=== PATIENT | female | born 1975 | race Caucasian/White ===

== ENCOUNTER 2017-09-20 19:55 | Observation (INO) | payer MEDICAID ==
[~2017-09-20] VITALS: Ht 160 cm; Wt 66.9 kg
[2017-09-20 19:58] VITALS: BP 115/56; PULSE 95; RESP 18; TEMP 98.3; O2SAT 100
[2017-09-20] MEDS ORDERED: SODIUM CHLORIDE 0.9% FLUSH 10 ML FLUSH IV FLUSH PRN ×2 (20:30→21:45)
[2017-09-20] MEDS ORDERED: ALUMINUM/MAGNESIUM/SIMETH 30 ML CUP PO ONE (20:30)
[2017-09-20] MEDS ORDERED: LIDOCAINE VISCOUS 2% SOLN 15 ML UDC PO ONE (20:30)
[2017-09-20] MEDS ORDERED: IOHEXOL 350 MG/ML 10 ML VIAL (for RAD DIAG) IVCONTRAST ONE (20:35)
--- NOTE | 2017-09-20 20:49 | PD ---
HPI Chief Complaint: GI Complaint Time Seen by Provider: 20:19 Travel History International Travel<30 days: No Contact w/Intl Traveler<30days: No Traveled to known affect area: No History of Present Illness HPI 42-year-old female with history of anemia, clotting disorder not on any blood thinners, Olayinka-en-Y gastric bypass in 2007, hiatal hernia, GERD, here for evaluation of her clotting disorder as well as sore throat. The patient tells me that 2 days ago she cut her left index finger and it did not bleed. She was told that if this ever occurs that she needed to be evaluated. She also tells me that for the last week to 2 weeks she has been having a sore throat. She states that she has pica because of her anemia and usually chews eyes, however this has been making her throat pain worse. She believes that this may be a result of her GERD, but she is not sure. Pain is 9 out of 10, worse with swallowing. She is able to swallow and tolerate her secretions. She denies fevers or chills. She believes that because of her throat pain that is worse with swallowing, that she may be malnourished. No chest pain or dyspnea. No paresthesias or motor deficits. PFSH Past Medical History Blood Disorders: Yes (blood clotting disorder ) Diminished Hearing: No GERD: Yes Hiatal Hernia: Yes Medical other: Yes (IBS-C) Neurologic: Yes (Blood clot in brain) ?: Unknown LMP: 09/10/17 Social History Alcohol Use: No Tobacco Use: No Substance Use: No Allergies-Medications (Allergen,Severity, Reaction): Coded Allergies: Penicillins (Verified Allergy, Unknown, unknown, 09/20/17) Review of Systems Except as stated in HPI: all other systems reviewed are Neg Physical Exam Narrative GENERAL: Well-developed, well-nourished, comfortable, no apparent distress. SKIN: Focused skin assessment warm/dry. HEAD: Atraumatic. Normocephalic. EYES: Pupils equal and round. No scleral icterus. No injection or drainage. ENT: No nasal bleeding or discharge. Mucous membranes pink and moist. No intraoral lesions. Mild pharyngeal erythema. No pharyngeal exudates or edema. Uvula is midline. Normal phonation. NECK: Trachea midline. No JVD. CARDIOVASCULAR: Regular rate and rhythm. RESPIRATORY: No accessory muscle use. Clear to auscultation. Breath sounds equal bilaterally. GASTROINTESTINAL: Abdomen soft, non-tender, nondistended. MUSCULOSKELETAL: No obvious deformities. No clubbing. No cyanosis. No edema. NEUROLOGICAL: Awake and alert. No obvious cranial nerve deficits. Motor grossly within normal limits. Normal speech. PSYCHIATRIC: Appropriate mood and affect; insight and judgment normal. Data Data Last Documented VS Vital Signs Date Time Temp Pulse Resp B/P (MAP) Pulse Ox O2 Delivery O2 Flow Rate FiO2 09/20/17 21:10 84 16 110/62 (78) 98 Nasal Cannula 09/20/17 19:58 98.3 Orders Orders Complete Blood Count With Diff (09/20/17 20:28) Comprehensive Metabolic Panel (09/20/17 20:28) Prothrombin Time / Inr (Pt) (09/20/17 20:28) Act Partial Throm Time (Ptt) (09/20/17 20:28) Iv Access Insert/Monitor (09/20/17 20:28) Ecg Monitoring (09/20/17 20:28) Oximetry (09/20/17 20:28) Sodium Chloride 0.9% Flush (Ns Flush) (09/20/17 20:30) Al-Mag Hy-Si 40-40-4 Mg/Ml Liq (Mag-Al P (09/20/17 20:30) Lidocaine 2% Viscous (Xylocaine 2% Visco (09/20/17 20:30) Group A Rapid Strep Screen (09/20/17 20:28) Type And Screen (09/20/17 21:16) Red Blood Cells (Rbc) (09/20/17 21:16) Blood Product Administration (09/20/17 21:16) Sodium Chlor 0.9% 250 Ml Inj (Ns 250 Ml (09/20/17 21:30) Strep Culture (Group A) (09/20/17 20:33) Place In Observation (09/20/17 ) Vital Signs (Adult) Q4H (09/20/17 21:37) Activity Oob With Assistance (09/20/17 21:37) Bedside Glucose SELINA.CSUGAR (09/20/17 21:37) Diet Heart Healthy (09/21/17 Breakfast) Sodium Chloride 0.9% Flush (Ns Flush) (09/20/17 21:45) Sodium Chloride 0.9% Flush (Ns Flush) (09/21/17 09:00) Acetaminophen (Tylenol) (09/20/17 21:45) Ondansetron Inj (Zofran Inj) (09/20/17 21:45) Basic Metabolic Panel (Bmp) (09/21/17 06:00) Comprehensive Metabolic Panel (09/21/17 06:00) Scd Bilateral/Knee High SELINA.BID (09/20/17 21:37) Naloxone Inj (Narcan Inj) (09/20/17 21:45) Docusate Sodium-Senna (Siri-Colace) (09/21/17 09:00) Magnesium Hydroxide Liq (Milk Of Magnesi (09/20/17 21:45) Sennosides (Senokot) (09/20/17 21:45) Bisacodyl Supp (Dulcolax Supp) (09/20/17 21:45) Lactulose Liq (Lactulose Liq) (09/20/17 21:45) Consult Gastroenterology (09/20/17 ) Pantoprazole Inj (Protonix Inj) (09/20/17 21:45) Occult Blood (Hemoccult) Stool (09/20/17 21:41) Labs Laboratory Tests Test 09/20/17 20:25 White Blood Count 7.7 TH/MM3 Red Blood Count 3.71 MIL/MM3 Hemoglobin 6.0 GM/DL Hematocrit 21.4 % Mean Corpuscular Volume 57.6 FL Mean Corpuscular Hemoglobin 16.3 PG Mean Corpuscular Hemoglobin Concent 28.3 % Red Cell Distribution Width 19.4 % Platelet Count 462 TH/MM3 Mean Platelet Volume 7.6 FL CBC Comment AUTO DIFF Differential Total Cells Counted 100 Neutrophils % (Manual) 53 % Lymphocytes % 41 % Monocytes % 3 % Eosinophils % 3 % Neutrophils # (Manual) 4.1 TH/MM3 Differential Comment FINAL DIFF MANUAL Platelet Estimate HIGH Platelet Morphology Comment NORMAL Target Cells 1+ Ovalocytes 2+ Keratocytes 1+ Prothrombin Time 10.7 SEC Prothromb Time International Ratio 1.0 RATIO Activated Partial Thromboplast Time 23.8 SEC Blood Urea Nitrogen 14 MG/DL Creatinine 0.52 MG/DL Random Glucose 103 MG/DL Total Protein 6.9 GM/DL Albumin 3.6 GM/DL Calcium Level 8.9 MG/DL Alkaline Phosphatase 47 U/L Aspartate Amino Transf (AST/SGOT) 9 U/L Alanine Aminotransferase (ALT/SGPT) 14 U/L Total Bilirubin 0.3 MG/DL Sodium Level 141 MEQ/L Potassium Level 3.6 MEQ/L Chloride Level 109 MEQ/L Carbon Dioxide Level 24.7 MEQ/L Anion Gap 7 MEQ/L Estimat Glomerular Filtration Rate 128 ML/MIN MDM Medical Decision Making Medical Screen Exam Complete: Yes Emergency Medical Condition: Yes Differential Diagnosis Anemia, pharyngitis, water brash/GERD, clotting disorder Narrative Course Vital signs reviewed and are within normal limits. CBC is remarkable for hemoglobin 6, hematocrit 21.4, MCV 57.6, MCH 16.3. CMP is unremarkable. Patient was made aware of all findings. She denies melena or hematochezia. She is having some generalized weakness. She was consented for blood transfusion will be written for 2 units of PRBCs and admitted for further treatment and evaluation. Case discussed with hospitalist Dr. Abdul who will admit the patient to her service. Diagnosis Primary Impression: Anemia Qualified Codes: D64.9 - Anemia, unspecified Admitting Information Admitting Physician Requests: Observation Chapito Wright MD Sep 20, 2017 20:49
[2017-09-20 20:55] LABS: CHLORIDE 109 MEQ/L (98-107); POTASSIUM 3.6 MEQ/L (3.5-5.1); SODIUM (NA) 141 MEQ/L (136-145)
[2017-09-20 20:58] LABS: ANION GAP 7 MEQ/L (5-15); BICARBONATE 24.7 MEQ/L (21.0-32.0); BLOOD UREA NITROGEN 14 MG/DL (7-18)
[2017-09-20 21:00] LABS: HEMATOCRIT 21.4 % (35.0-46.0); HEMO FLAGS AUTO DIFF; MEAN CELL VOLUME 57.6 FL (80.0-100.0); MEAN CORPUSCULAR HEMOGLOBIN 16.3 PG (27.0-34.0); MEAN CORPUSCULAR HGB CONC 28.3 % (32.0-36.0); PLATELET COUNT 462 TH/MM3 (150-450); RED BLOOD COUNT 3.71 MIL/MM3 (4.00-5.30); RED CELL DISTRIBUTION WIDTH 19.4 % (11.6-17.2); WHITE BLOOD COUNT 7.7 TH/MM3 (4.0-11.0)
[2017-09-20 21:01] LABS: ALT (GPT) 14 U/L (10-53); AST (GOT) 9 U/L (15-37)
[2017-09-20 21:02] LABS: GLOMERULAR FILTRATION RATE 128 ML/MIN (>89)
[2017-09-20 21:03] LABS: TOTAL BILIRUBIN ADULT 0.3 MG/DL (0.2-1.0)
[2017-09-20 21:04] LABS: ALKALINE PHOSPHATASE 47 U/L (45-117)
[2017-09-20 21:09] VITALS: O2SAT 98
[2017-09-20 21:10] VITALS: BP 110/62; PULSE 84; RESP 16; O2SAT 98
[2017-09-20 21:13] LABS: APTT (PATIENT) 23.8 SEC (24.3-30.1); PROTHROMBIN TIME - PATIENT 10.7 SEC (9.8-11.6)
[2017-09-20] MEDS ORDERED: SODIUM CHLOR 0.9% 250 ML INJ 250 ML IV ONE (21:30)
[2017-09-20 21:39] LABS: EOSINOPHILS 3 % (0-4); NEUTROPHIL # MANUAL DIFF 4.1 TH/MM3 (1.8-7.7); OVALOCYTES 2+ (NORMAL); POLYS (SEG NEUTROPHILS) 53 % (16-70); TARGET CELLS 1+ (NORMAL); WBC DIFF SAMPLE 100
[2017-09-20 21:42] LABS: KERATOCYTES 1+ (NORMAL); PLATELET ESTIMATE SMEAR HIGH (NORMAL); PLATELET MORPHOLOGY NORMAL (NORMAL); SCAN/DIFF FINAL DIFF MANUAL
[2017-09-20] MEDS ORDERED: ACETAMINOPHEN 325 MG TAB PO PRN (21:45)
[2017-09-20] MEDS ORDERED: MAGNESIUM HYDROXIDE SUSP 30 ML CUP PO PRN (21:45)
[2017-09-20] MEDS ORDERED: LACTULOSE SYRUP 20 GM/30 ML CUP PO PRN (21:45)
[2017-09-20] MEDS ORDERED: BISACODYL 10 MG SUPP RECTAL PRN (21:45)
[2017-09-20] MEDS ORDERED: NALOXONE HCL 0.4 MG/ML AMP IV PUSH PRN (21:45)
[2017-09-20] MEDS ORDERED: ONDANSETRON HCL 4 MG/2 ML VIAL IVP PRN (21:45)
[2017-09-20] MEDS ORDERED: SENNOSIDES 8.6 MG TAB PO PRN (21:45)
[2017-09-20] MEDS: PANTOPRAZOLE SODIUM 40 MG VIAL IV PUSH SCH (21:56)
[2017-09-20 22:10] VITALS: BP 102/58; PULSE 85; RESP 18; TEMP 97.2; O2SAT 100
[2017-09-20 23:25] VITALS: BP 105/55; PULSE 76; RESP 20; TEMP 96.9; O2SAT 100
[2017-09-21] VITALS (12 sets, daily range): BP systolic 89–105; BP diastolic 51–84; PULSE 66–84; RESP 18–20; TEMP 96.8–97.8; O2SAT 98–99
--- NOTE | 2017-09-21 08:29 | HHI.HP ---
HPI [facility] Primary Care Physician Non-Staff Admission Diagnosis Anemia Diagnoses: (1) Anemia Diagnosis: Principal Chief Complaint: Blood clotting issues Travel History International Travel<30 Days: No Contact w/Intl Traveler <30 Da: No Traveled to Known Affected Are: No History of Present Illness Written by Ab Murillo, acting as scribe for Dr. Jc on 09/21/17 at 08 :29. 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 Patient states that she is always been told when she was diagnosed with her bleeding disorder that if she would have any bleeding abnormalities such as delayed bleeding she should go to the hospital for evaluation. Patient states that 3 days ago she cut herself and it did not bleed as much as it should. Because of that reason she came to the hospital yesterday for evaluation. Patient does have coagulopathy in which she monitors symptoms. She has had significant sore throat, sore mouth with PICA because patient had workup done in emergency department and found to have hemoglobin of 6.0 with decreased MCV indicative of iron deficiency. Patient indicates that she has not been taking her B12 or iron for at least a few months. ER physician recommended patient be observed in the hospital. Patient status post 2 units packed red blood cell transfusion. Patient had strep studies performed which did not indicate any acute etiology of her mouth/throat pain. Patient denies any chest pain, shortness of breath, dyspnea, melena, hematochezia. Patient has had chronic abdominal pain with constipation. Patient indicates that she had heavier menses With more clots with her last cycle. 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 Denies any heart disease, stroke , seizures Social History Patient eyes any tobacco, alcohol or illicit drugs Physical Exam Vital Signs Vital Signs Date Time Temp Pulse Resp B/P (MAP) Pulse Ox O2 Delivery O2 Flow Rate FiO2 09/21/17 06:50 97.8 75 18 102/84 98 09/21/17 06:42 97.8 75 20 102/56 (71) 98 09/21/17 04:41 97.0 70 18 89/54 99 09/21/17 04:14 97.0 81 20 95/58 99 09/21/17 03:58 97.8 69 20 96/51 (66) 98 09/21/17 01:20 97.1 84 20 96/56 99 09/21/17 00:39 96.8 80 18 93/56 99 09/20/17 23:25 96.9 76 20 105/55 (72) 100 09/20/17 23:15 09/20/17 22:10 97.2 85 18 102/58 (73) 100 Room Air 09/20/17 21:10 84 16 110/62 (78) 98 Nasal Cannula 09/20/17 21:09 98 09/20/17 19:58 98.3 95 18 115/56 (75) 100 Physical Exam GENERAL: Well-developed, well-nourished, in no acute distress. alert and orientated HEENT: Head is normocephalic without any lesions or masses noted. Facial features are symmetric. Eyes: Pupils equal round reactive to light. Extraocular muscles are intact. Conjunctivae were clear. Oropharyngeal: Pharynx without any erythema edema. Tongue is midline without deviation. Buccal mucosa is moist without any masses or lesions NECK: Supple without any masses. Trachea midline no deviation. No JVD, no bruits are appreciated CARDIAC: Regular rhythm, regular rate. S1/S2 are heard. No murmurs gallops or rubs. LUNGS: Clear to auscultation bilaterally. No wheeze, rhonchi or rales. No use of accessory muscles on inspiration or expiration. ABDOMEN: Soft, mild epigastric tenderness on palpation. Nondistended. Bowel sounds heard in all 4 quadrants. No organomegaly or masses. Negative rebound, negative guarding EXTREMITIES: No edema, pulses are equal bilaterally. No cyanosis or clubbing NEUROLOGY: Mood and affect appear appropriate. Cranial nerves II through XII grossly intact. Muscle strength 5/5 in upper and lower extremities bilaterally. Deep tendon reflexes are 2+ in upper and lower extremities bilaterally. Laboratory Laboratory Tests Test 09/20/17 20:25 White Blood Count 7.7 Red Blood Count 3.71 Hemoglobin 6.0 Hematocrit 21.4 Mean Corpuscular Volume 57.6 Mean Corpuscular Hemoglobin 16.3 Mean Corpuscular Hemoglobin Concent 28.3 Red Cell Distribution Width 19.4 Platelet Count 462 Mean Platelet Volume 7.6 CBC Comment AUTO DIFF Differential Total Cells Counted 100 Neutrophils % (Manual) 53 Lymphocytes % 41 Monocytes % 3 Eosinophils % 3 Neutrophils # (Manual) 4.1 Differential Comment FINAL DIFF MANUAL Platelet Estimate HIGH Platelet Morphology Comment NORMAL Target Cells 1+ Ovalocytes 2+ Keratocytes 1+ Blood Smear Pathologist Review Prothrombin Time 10.7 Prothromb Time International Ratio 1.0 Activated Partial Thromboplast Time 23.8 Blood Urea Nitrogen 14 Creatinine 0.52 Random Glucose 103 Total Protein 6.9 Albumin 3.6 Calcium Level 8.9 Alkaline Phosphatase 47 Aspartate Amino Transf (AST/SGOT) 9 Alanine Aminotransferase (ALT/SGPT) 14 Total Bilirubin 0.3 Sodium Level 141 Potassium Level 3.6 Chloride Level 109 Carbon Dioxide Level 24.7 Anion Gap 7 Estimat Glomerular Filtration Rate 128 Date/Time Source Procedure Growth Status 09/20/17 20:33 Throat Group A Streptococcus Screen Pending Received Result Diagram: 09/20/17202409/20/172024 Caprini VTE Risk Assessment Caprini VTE Risk Assessment: Mod/High Risk (score >= 2) Caprini Risk Assessment Model Point Value = 1 Point Value = 2 Point Value = 3 Point Value = 5 Age 41-60 Minor surgery BMI > 25 kg/m2 Swollen legs Varicose veins or History of unexplained or recurrent spontaneous Oral contraceptives or hormone replacement Sepsis (< 1 month) Serious lung disease, including pneumonia (< 1 month) Abnormal pulmonary function Acute myocardial infarction Congestive heart failure (< 1 month) History of inflammatory bowel disease Medical patient at bed rest Age 61-74 Arthroscopic surgery Major open surgery (> 45 min) Laparoscopic surgery (> 45 min) Malignancy Confined to bed (> 72 hours) Immobilizing plaster cast Central venous access Age >= 75 History of VTE Family history of VTE Factor V Leiden Prothrombin [id number] Lupus anticoagulant Anticardiolipin antibodies Elevated serum homocysteine Heparin-induced thrombocytopenia Other congenital or acquired thrombophilia Stroke (< 1 month) Elective arthroplasty Hip, pelvis, or leg fracture Acute spinal cord injury (< 1 month) Prophylaxis Regimen Total Risk Factor Score Risk Level Prophylaxis Regimen 0-1 Low Early ambulation 2 Moderate Order ONE of the following: *Sequential Compression Device (SCD) *Heparin 5000 units SQ BID 3-4 Higher Order ONE of the following medications: *Heparin 5000 units SQ TID *Enoxaparin/Lovenox 40 mg SQ daily (WT < 150 kg, CrCl > 30 mL/min) *Enoxaparin/Lovenox 30 mg SQ daily (WT < 150 kg, CrCl > 10-29 mL/min) *Enoxaparin/Lovenox 30 mg SQ BID (WT < 150 kg, CrCl > 30 mL/min) AND/OR *Sequential Compression Device (SCD) 5 or more Highest Order ONE of the following medications: *Heparin 5000 units SQ TID (Preferred with Epidurals) *Enoxaparin/Lovenox 40 mg SQ daily (WT < 150 kg, CrCl > 30 mL/min) *Enoxaparin/Lovenox 30 mg SQ daily (WT < 150 kg, CrCl > 10-29 mL/min) *Enoxaparin/Lovenox 30 mg SQ BID (WT < 150 kg, CrCl > 30 mL/min) AND *Sequential Compression Device (SCD) Assessment and Plan Problem List: (1) Microcytic anemia ICD Code: D50.9 - Iron deficiency anemia, unspecified Assessment and Plan Microcytic Anemia Patient has history of Olayinka-en-Y surgery with iron deficiency, B12 deficiency Patient is not taking any medications for the last few months Status post transfusion 2 units packed red blood cells Obtain iron studies for further evaluation, awaiting stool for occult blood Will likely need to start B12, iron supplementation Pharyngitis, dysphagia Strep Studies are negative Could be secondary to B12 deficiency Bedside swallow evaluation 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 I, Dr. Sammy Jc personally performed the history, physical exam, and medical decision making; and confirmed the accuracy of the information in the transcribed note. Authenticated by Dr. Sammy Jc on 09/21/17 at 08:29. Code Status Full code Discussed Condition With Patient Problem Qualifiers (1) Anemia: Qualified Codes: D64.9 - Anemia, unspecified Ab Murillo Sep 21, 2017 08:29 Sammy Jc MD Sep 21, 2017 08:29
[2017-09-21] MEDS: DOCUSATE SODIUM 50 MG/SENNA 8.6 MG TAB PO SCH ×2 (08:40→21:00)
[2017-09-21] MEDS: SODIUM CHLORIDE 0.9% FLUSH 10 ML FLUSH IV FLUSH SCH ×2 (08:41→21:44)
[2017-09-21 10:53] LABS: AUTOMATED NEUTROPHIL # 4.1 TH/MM3 (1.8-7.7); BASOPHIL % 0.7 % (0.0-2.0); EOSINOPHIL # 0.1 TH/MM3 (0-0.4); HEMATOCRIT 28.5 % (35.0-46.0); LYMPH % 25.4 % (9.0-44.0); LYMPHOCYTE # 1.6 TH/MM3 (1.0-4.8); MEAN CELL VOLUME 63.9 FL (80.0-100.0); MEAN CORPUSCULAR HEMOGLOBIN 18.6 PG (27.0-34.0); MONO % 10.4 % (0.0-8.0); NEUT % 62.5 % (16.0-70.0); PLATELET COUNT 391 TH/MM3 (150-450); RED BLOOD COUNT 4.47 MIL/MM3 (4.00-5.30); WHITE BLOOD COUNT 6.5 TH/MM3 (4.0-11.0)
[2017-09-21 10:56] LABS: HEMO FLAGS AUTO DIFF; MEAN CORPUSCULAR HGB CONC 29.1 % (32.0-36.0)
[2017-09-21 11:01] LABS: CHLORIDE 109 MEQ/L (98-107); POTASSIUM 3.7 MEQ/L (3.5-5.1); SODIUM (NA) 142 MEQ/L (136-145)
[2017-09-21 11:04] LABS: ANION GAP 6 MEQ/L (5-15); BICARBONATE 27.5 MEQ/L (21.0-32.0)
[2017-09-21 11:05] LABS: BLOOD UREA NITROGEN 13 MG/DL (7-18)
[2017-09-21 11:08] LABS: ALT (GPT) 15 U/L (10-53); AST (GOT) 9 U/L (15-37); GLOMERULAR FILTRATION RATE 144 ML/MIN (>89)
[2017-09-21 11:09] LABS: TOTAL BILIRUBIN ADULT 1.4 MG/DL (0.2-1.0)
[2017-09-21 11:10] LABS: ALKALINE PHOSPHATASE 40 U/L (45-117)
[2017-09-21 11:17] LABS: KERATOCYTES 2+ (NORMAL); OVALOCYTES 2+ (NORMAL); SCAN/DIFF AUTO DIFF CONFIRMED; TARGET CELLS 1+ (NORMAL)
[2017-09-21 14:09] LABS: LDH SERUM 225 U/L (84-246)
[2017-09-21 14:10] LABS: REVIEW FLAG FINAL
[2017-09-21 14:34] LABS: FERRITIN 1 NG/ML (8-252); TRANSFERRIN IRON PROFILE 327 MG/DL (200-360)
[2017-09-21] MEDS ORDERED: DIATRIZOATE MEGLUM/DIATRIZOATE SOD 9 ML CUP PO ONE (16:00)
--- NOTE | 2017-09-21 21:02 | MB ---
cc: JAMES GONZALEZ M.D., ERIC DATE OF CONSULTATION: 09/21/2017 REASON FOR CONSULTATION: Anemia, dysphagia, odynophagia. DATE OF : 1975 REFERRING PHYSICIAN: Dr. Jc HISTORY OF PRESENT ILLNESS: Ms. Chaudhry is a 42-year-old lady with multiple medical problems, noncompliant to medication, came to the emergency room with complaints of feeling weak and difficulty eating. She is mostly complaining of sore throat and sore mouth, going on for many months ,getting worse recently. She also reports some underlying coagulopathy, currently not taking any medications. The patient is status post gastric bypass. She is not following with bariatric surgery or taking her bariatric supplements. She stated she does have chronic abdominal pain, constipation, and anemia. She is not sure what her baseline hemoglobin is. She had an endoscopy and colonoscopy more than ten years ago. According to her everything was normal. She was evaluated at bedside by nursing staff with a swallow evaluation and she failed that. She choked on a pill. Currently awaiting speech therapy to further evaluate her. She denies any melena, hematemesis, hematochezia or menometrorrhagia. She denies any epistaxis. PAST MEDICAL HISTORY: 1. Iron deficiency, unclear what her hemoglobin at baseline is. 2. History of CVA from trauma. 3. Endometriosis. 4. IBS 5. Seizure disorder. 6. Reflux. PAST SURGICAL HISTORY: 1. Olayinka-en-Y 2. Breast reduction. 3. Colectomy 4. Cholecystectomy OUTPATIENT MEDICATIONS: None. ALLERGIES PENICILLIN FAMILY HISTORY No family history of colon cancer or any other GI pathology. REVIEW OF SYSTEMS: She denies any fever or chills. She does have some weight loss. ENT: No alteration in baseline hearing or visual acuity. Pulmonary: Denies any chest pain, shortness of breath. Gastrointestinal: As above. Genitourinary: Denies dysuria, hematuria. Hematologic: Does have a history of anemia and clotting disorder. Skin: No alteration in baseline skin lesion. Neurological: No history of TIA or CVA kind of symptoms in the recent past. CLINICAL EXAM She is sitting comfortably in bed, in no acute distress. Pale. HEENT: PERRLA. Neck: No JVD. No lymphadenopathy Chest: Clear to auscultation. Cardiovascular: S1-S2 no murmur. Abdomen: Soft, nontender. Bowel sounds are present. ROLL WEIGHER: Awake, alert, oriented x3. No focal signs identified. VITAL SIGNS: Her temperature is 98.3, pulse 95, respiratory rate 18, blood pressure 115/56, saturation 100. LABORATORY DATA: Suggestive of hemoglobin of 6, MCV is 57.6, RDW 19.4, platelets were 482. Her white count is 7.7. PT/INR normal. Her total bilirubin is 1.4, was 0.3 upon admission. IMAGING STUDIES: No imaging done so far. IMPRESSION Ms. Chaudhry is a 42-year-old lady with multiple medical problems admitted with symptomatic anemia. No indication of active bleed at this time, microcytic anemia, multifactorial, most likely absorption problems and noncompliance to her bariatric supplements. The odynophagia and dysphagia, sore mouth possibly secondary to iron deficiency anemia, possible vitamin B12 deficiency. RECOMMENDATIONS Await speech therapy evaluation. If she passes okay to start her on p.o. diet, as recommended by speech therapy, also CT of the abdomen and pelvis will be scheduled once she is able to tolerate p.o. She may benefit from an upper endoscopy with possible dilatation on colonoscopy. If she remains hospitalized, can be done on Tuesday. If not, can be done as an outpatient. This was discussed with the patient in detail. Iron supplementation, may consider IV iron infusion. Await vitamin B12, folate results. I would like to thank Dr. Jc for referring to our office for consultation. Thank you again. Will continue to follow the patient along with you. James Gonzalez MD BSB/GUERLINE /2:18 PM /8:46 PM APRIL
--- NOTE | 2017-09-21 21:10 | RADRPT ---
EXAM DATE/TIME: 09/21/2017 20:22 [facility] COMPARISON: No previous studies available for comparison. INDICATIONS : Chronic abdominal pain and constipation. Anemia. IV CONTRAST: 100 cc Omnipaque 350 (iohexol) IV ORAL CONTRAST: Prescribed oral contrast ingested. RADIATION DOSE: 9.45 CTDIvol (mGy) MEDICAL HISTORY : Gastroesophageal reflux disease. Irritable bowel syndrome. Cerebrovascular disease.Hiatal hernia. Se izures. Hypertension. SURGICAL HISTORY : Cholecystectomy. Gastric bypass. ENCOUNTER: Initial ACUITY: 4 - 6 days PAIN SCALE: 7/10 LOCATION: Diffuse abdomen. TECHNIQUE: Volumetric scanning of the abdomen and pelvis was performed. Using automated exposure control and ad justment of the mA and/or kV according to patient size, radiation dose was kept as low as reasonably achievable to obtain optimal diagnostic quality images. DICOM format image data is available electro nically for review and comparison. FINDINGS: LOWER LUNGS: The visualized lower lungs are clear. LIVER: No focal lesions in the liver. No intrahepatic ductal dilatation. Hemoclips in the ray from prior cholecystectomy. Common bile duct is mildly prominent measuring up to 9 mm, possible reservoir effe ct. SPLEEN: Normal size without lesion. PANCREAS: Within normal limits. KIDNEYS: Normal in size and shape. There is no mass, stone or hydronephrosis. ADRENAL GLANDS: Within normal limits. VASCULAR: There is no aortic aneurysm. BOWEL/MESENTERY: Oral contrast passes two th[address] the way through the small bowel. No dilated loops of small bowel. P rominent amount is stool and the right colon and transverse colon. Anastomosis suture about the stom ach. ABDOMINAL WALL: Within normal limits. RETROPERITONEUM: There is no lymphadenopathy. BLADDER: No wall thickening or mass. REPRODUCTIVE: Anteverted uterus is top no evidence free fluid. INGUINAL: There is no lymphadenopathy or hernia. MUSCULOSKELETAL: Within normal limits for patient age. CONCLUSION: 1. Constipation. No dilated loops of small bowel. 2. Prominence of the common bile duct without filling defect and with evidence of prior cholecystecto my, probably reservoir effect. Noah Martínez MD on September 21, 2017 at 21:05 Board Certified Radiologist. This report was verified electronically.
[2017-09-21] MEDS: PANTOPRAZOLE SODIUM 40 MG VIAL IV PUSH SCH (21:44)
[2017-09-21] MEDS: PHENOL 1.4% SOLN 180 ML BTL OROPHARYNG PRN (21:46)
[2017-09-22 08:00] VITALS: BP 105/59; PULSE 65; RESP 12; TEMP 97.4; O2SAT 95
[2017-09-22] MEDS: DOCUSATE SODIUM 50 MG/SENNA 8.6 MG TAB PO SCH ×2 (09:00→21:08)
[2017-09-22] MEDS: SODIUM CHLORIDE 0.9% FLUSH 10 ML FLUSH IV FLUSH SCH ×2 (09:21→21:06)
[2017-09-22] MEDS: IRON SUCROSE INJ 200 MG in SODIUM CHLORIDE 0.9% INJ 100 ML IV SCH (10:57)
[2017-09-22] MEDS: PHENOL 1.4% SOLN 180 ML BTL OROPHARYNG PRN ×3 (10:57→21:06)
--- NOTE | 2017-09-22 11:08 | HHI.PR ---
Subjective Remarks Follow up Microcytic anemia 09/22 2017-patient seen and examined, she was transfused 2 units PRBC; Denies any solid or liquid dysphagia. Denies any GI bleed Objective Vitals Vital Signs Date Time Temp Pulse Resp B/P (MAP) Pulse Ox O2 Delivery O2 Flow Rate FiO2 09/22/17 08:00 97.4 65 12 105/59 (74) 95 09/21/17 23:46 97.3 81 18 105/66 (79) 98 09/21/17 20:00 97.6 76 18 104/62 (76) 99 09/21/17 15:50 97.4 79 20 105/57 (73) 98 09/21/17 11:54 97.1 66 20 100/56 (71) 98 I/O 09/21/17 09/21/17 09/21/17 09/22/17 09/22/17 09/22/17 07:00 15:00 23:00 07:00 15:00 23:00 Intake Total 2780 ml 240 ml 580 ml Balance 2780 ml 240 ml 580 ml Intake Oral 480 ml 240 ml 580 ml IV Total 50 ml Packed Cells 1200 ml Blood Product IV Normal Saline Flush 1050 ml # Voids 2 6 3 # Bowel Movements 0 0 Result Diagram: 09/21/17 1045 09/21/17 1035 Imaging Last Impressions Abdomen/Pelvis CT 09/21/17 0000 Signed Impressions: Service Date/Time: Thursday, September 21, 2017 20:22 - CONCLUSION: 1. Constipation. No dilated loops of small bowel. 2. Prominence of the common bile duct without filling defect and with evidence of prior cholecystectomy, probably reservoir effect. Noah Martínez MD Objective Remarks GENERAL: NAD SKIN: Warm and dry. HEAD: Normocephalic. EYES: No scleral icterus. No injection or drainage. NECK: Supple, trachea midline. No JVD or lymphadenopathy. CARDIOVASCULAR: Regular rate and rhythm without murmurs, gallops, or rubs. RESPIRATORY: Breath sounds equal bilaterally. No accessory muscle use. GASTROINTESTINAL: Abdomen soft, non-tender, nondistended. MUSCULOSKELETAL: No cyanosis, or edema. BACK: Nontender without obvious deformity. No CVA tenderness. A/P Problem List: (1) Microcytic anemia ICD Code: D50.9 - Iron deficiency anemia, unspecified Assessment and Plan 42 yrs old female with Microcytic Anemia Patient has history of Olayinka-en-Y surgery with iron deficiency, B12 deficiency Patient is not taking any medications for the last few months Status post transfusion 2 units packed red blood cells Appreciate input from gastroenterology who plan for EGD +/- Colonoscopy in a.m 09/23/17. 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
[2017-09-22 12:00] VITALS: BP 100/55; PULSE 65; RESP 16; TEMP 96.6; O2SAT 98
--- NOTE | 2017-09-22 14:06 | HHI.GIFU ---
Subjective Remarks Resting in bed. Continues to have odynophagia and issues with solids and pills getting caught in upper esophagus. Also having issues with GERD and chronic constipation. (Susan Duffy) Objective Vitals I&O Vital Signs Date Time Temp Pulse Resp B/P (MAP) Pulse Ox O2 Delivery O2 Flow Rate FiO2 09/22/17 12:00 96.6 65 16 100/55 (70) 98 09/22/17 08:00 97.4 65 12 105/59 (74) 95 09/21/17 23:46 97.3 81 18 105/66 (79) 98 09/21/17 20:00 97.6 76 18 104/62 (76) 99 09/21/17 15:50 97.4 79 20 105/57 (73) 98 I/O 09/21/17 09/21/17 09/21/17 09/22/17 09/22/17 09/22/17 07:00 15:00 23:00 07:00 15:00 23:00 Intake Total 2780 ml 240 ml 580 ml Balance 2780 ml 240 ml 580 ml Intake Oral 480 ml 240 ml 580 ml IV Total 50 ml Packed Cells 1200 ml Blood Product IV Normal Saline Flush 1050 ml # Voids 2 6 3 # Bowel Movements 0 0 Laboratory Date/Time Source Procedure Growth Status 09/20/17 20:33 Throat Group A Streptococcus Screen - Preliminary IMMATURE GROWTH - REINCUBATE Resulted Imaging Last Impressions Abdomen/Pelvis CT 09/21/17 0000 Signed Impressions: Service Date/Time: Thursday, September 21, 2017 20:22 - CONCLUSION: 1. Constipation. No dilated loops of small bowel. 2. Prominence of the common bile duct without filling defect and with evidence of prior cholecystectomy, probably reservoir effect. Noah Martínez MD Physical Exam HEENT: Normocephalic; atraumatic; no jaundice. CHEST: CTA CARDIAC: RRR ABDOMEN: Soft, nondistended, nontender; no hepatosplenomegaly; bowel sounds are present in all four quadrants. EXTREMITIES: No clubbing, cyanosis, or edema. SKIN: Normal; no rash; no jaundice. QUALITY ASSURANCE LAB TECHNICIAN: No focal deficits; alert and oriented times three. (Susan Duffy) Assessment and Plan Plan ASSESSMENT: - Anemia. Hx Olayinka-en-Y procedure in 2007. HH 6.0/21.4 on admission. S/P 2 units PRBC. HH 8.3/28.5. PPI - Odynophagia, Dysphagia. PPI - GERD. PPI - Constipation. Daily Miralax after bowel prep - Prominent CBD with mildly elevated LFTs. CT Scan abdomen and pelvis (09/21/17) --> Constipation, no dilated loops of small bowel. Prominence of the CBD 9mm, without filling defect and with evidence of prior cholecystectomy, probable reservoir effect. PLAN: - Plan for EGD +/- Dilatation, Colonoscopy - Obtain consents - NPO after MN - Clear liquids today - Golytely prep - Miralax daily starting tomorrow - Monitor CBC, CMP - Supportive care - Further recommendations to follow based on results of above - Pt seen and examined by Dr. Schilling and myself and this note is written on his behalf (Susan Duffy) Physician Comments Seen and examined with JULIANN, EGD/Dilation/colonoscopy planned for tomorrow. (Bob Schilling MD) Susan Duffy Sep 22, 2017 14:06 Bob Schilling MD Sep 22, 2017 14:21
[2017-09-22 16:00] VITALS: BP 104/55; PULSE 75; RESP 16; TEMP 98.3; O2SAT 98
[2017-09-22] MEDS ORDERED: PEG (High)/E-LYTE SOLN 4000 ML BTL PO ONE (16:00)
[2017-09-22 20:00] VITALS: BP 101/52; PULSE 70; RESP 16; TEMP 97; O2SAT 98
[2017-09-22] MEDS: PANTOPRAZOLE SODIUM 40 MG VIAL IV PUSH SCH (21:06)
[2017-09-23] VITALS (7 sets, daily range): BP systolic 99–118; BP diastolic 45–72; PULSE 67–80; RESP 15–20; TEMP 96.9–98.5; O2SAT 98–100
[2017-09-23 06:53] LABS: AUTOMATED NEUTROPHIL # 5.2 TH/MM3 (1.8-7.7); BASOPHIL % 0.4 % (0.0-2.0); EOSINOPHIL # 0.2 TH/MM3 (0-0.4); HEMATOCRIT 27.1 % (35.0-46.0); LYMPHOCYTE # 2.2 TH/MM3 (1.0-4.8); MEAN CELL VOLUME 64.9 FL (80.0-100.0); MEAN CORPUSCULAR HEMOGLOBIN 18.9 PG (27.0-34.0); MONO % 7.2 % (0.0-8.0); NEUT % 63.4 % (16.0-70.0); PLATELET COUNT 308 TH/MM3 (150-450); RED BLOOD COUNT 4.19 MIL/MM3 (4.00-5.30); WHITE BLOOD COUNT 8.2 TH/MM3 (4.0-11.0)
[2017-09-23 07:00] LABS: HEMO FLAGS AUTO DIFF; MEAN CORPUSCULAR HGB CONC 29.1 % (32.0-36.0); POTASSIUM 3.1 MEQ/L (3.5-5.1)
[2017-09-23 07:04] LABS: BICARBONATE 27.4 MEQ/L (21.0-32.0)
[2017-09-23 07:42] LABS: ACANTHOCYTES 1+ (NORMAL); KERATOCYTES 1+ (NORMAL); OVALOCYTES 2+ (NORMAL); SCAN/DIFF AUTO DIFF CONFIRMED; TARGET CELLS 1+ (NORMAL)
[2017-09-23] MEDS: IRON SUCROSE INJ 200 MG in SODIUM CHLORIDE 0.9% INJ 100 ML IV SCH (09:00)
[2017-09-23] MEDS: DOCUSATE SODIUM 50 MG/SENNA 8.6 MG TAB PO SCH ×2 (09:00→20:51)
[2017-09-23] MEDS: POLYETHYLENE GLYCOL 17 GM PKG PO SCH (09:00)
[2017-09-23] MEDS: SODIUM CHLORIDE 0.9% FLUSH 10 ML FLUSH IV FLUSH SCH ×2 (09:02→20:50)
--- NOTE | 2017-09-23 11:03 | HHI.PR ---
Subjective Remarks Follow up Microcytic anemia 09/22 2017-patient seen and examined, she was transfused 2 units PRBC; Denies any solid or liquid dysphagia. Denies any GI bleed 09/23/17-patient seen and examined, upsets that she had to take the prep for bowel due to continue ongoing issue with constipation. Plan for EGD +/- endoscopy per GI Objective Vitals Vital Signs Date Time Temp Pulse Resp B/P (MAP) Pulse Ox O2 Delivery O2 Flow Rate FiO2 09/23/17 08:00 98.3 79 15 103/54 (70) 98 09/23/17 04:00 98.5 75 16 99/56 (70) 99 09/23/17 00:00 97.9 76 16 118/66 (83) 99 09/22/17 20:00 97.0 70 16 101/52 (68) 98 09/22/17 16:00 98.3 75 16 104/55 (71) 98 09/22/17 12:00 96.6 65 16 100/55 (70) 98 I/O 09/22/17 09/22/17 09/22/17 09/23/17 09/23/17 09/23/17 07:00 15:00 23:00 07:00 15:00 23:00 Intake Total 580 ml 500 ml 10 ml Balance 580 ml 500 ml 10 ml Intake Oral 580 ml 500 ml IV Total 10 ml # Voids 3 2 5 # Bowel Movements 0 1 1 Result Diagram: 09/23/1762409/23/17624 Objective Remarks GENERAL: NAD SKIN: Warm and dry. HEAD: Normocephalic. EYES: No scleral icterus. No injection or drainage. NECK: Supple, trachea midline. No JVD or lymphadenopathy. CARDIOVASCULAR: Regular rate and rhythm without murmurs, gallops, or rubs. RESPIRATORY: Breath sounds equal bilaterally. No accessory muscle use. GASTROINTESTINAL: Abdomen soft, non-tender, nondistended. MUSCULOSKELETAL: No cyanosis, or edema. BACK: Nontender without obvious deformity. No CVA tenderness. A/P Problem List: (1) Microcytic anemia ICD Code: D50.9 - Iron deficiency anemia, unspecified (2) Iron deficiency anemia ICD Code: D50.9 - Iron deficiency anemia, unspecified Assessment and Plan 42 yrs old female with Microcytic Anemia Patient has history of Olayinka-en-Y surgery with iron deficiency, B12 deficiency Patient is not taking any medications for the last few months Status post transfusion 2 units packed red blood cells. H&H remained stable Appreciate input from gastroenterology who plan for EGD +/- Colonoscopy today 09/23/17. 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
--- NOTE | 2017-09-23 14:43 | GIPROC ---
[facility] [address] [place] [address], [id number] EGD PROCEDURE REPORT EXAM DATE: 09/23/2017 PATIENT NAME: Ashtyn Chaudhry MR #: [id number] BIRTHDATE: 1975 ATTENDING: Bob Schilling MD ORDER #: [id number] FELT CUTTER: Renato Kitchen and Laura Varma STATUS: inpatient INDICATIONS: The patient is a 42 yr old female here for an EGD due to anemia and iron deficiency anemia PROCEDURE PERFORMED: EGD w/ biopsy MEDICATIONS: None and Per Anesthesia. TOPICAL ANESTHETIC: CONSENT: The patient understands the risks and benefits of the procedure and understands that these risks include, but are not limited to: sedation, allergic reaction, infection, perforation and/or bleeding. Alternative means of evaluation and treatment include, among others: physical exam, x-rays, and/or surgical intervention. The patient elects to proceed with this endoscopic procedure. medical equipment was checked for proper function. Hand hygiene and appropriate measures for infection prevention was taken. After the risks, benefits and alternatives of the procedure were thoroughly explained, Informed consent was verified, confirmed and timeout was successfully executed by the treatment team. The patient was anesthetized with topical anesthesia and the EC-[id number] (Pedi C) endoscope was introduced through the mouth and advanced to the second portion of the duodenum. Retroflexed views revealed no abnormalities The gastroscope was then slowly withdrawn and removed. ESOPHAGUS: There was LA Class A esophagitis noted. A biopsy was performed using cold forceps. Sample sent for histology. There was a short friable stricture in the upper third of the esophagus. The stricture was traversable with resistance. A biopsy was performed using cold forceps. Sample sent for histology. STOMACH: Gastric surgery, small non bleeding ulcer. DUODENUM: The duodenal mucosa appeared normal in the bulb and second portion of the duodenum. ADVERSE EVENTS: There were no complications. IMPRESSIONS: 1. There was LA Class A esophagitis noted; biopsy was performed 2. There was a short stricture in the upper third of the esophagus 3. Gastric surgery, small non bleeding ulcer 4. Normal duodenal mucosa in the bulb and second portion of the duodenum 5. Retroflexed views revealed no abnormalities RECOMMENDATIONS: 1. Await biopsy results. Biopsy results will not be ready for 7-10 days. If you don't hear from us in two weeks, call our office for biopsy results. 2. Anti-reflux regimen 3. Continue PPI PATIENT CONDITION: stable DISPOSITION: Inpatient REPEAT EXAM: Return 1 year EGD with dilatation Bob Schilling MD eSigned: Bob Schilling MD 09/23/2017 2:43 PM cc: PATIENT NAME: Ashtyn Chaudhry MR#: [id number]
--- NOTE | 2017-09-23 14:44 | GIPROC ---
[facility] [address] [place] [address], [id number] COLONOSCOPY PROCEDURE REPORT EXAM DATE: 09/23/2017 PATIENT NAME: Ashtyn Chaudhry MR #: [id number] BIRTHDATE: 1975 ENDOSCOPIST: Bob Schilling MD ORDER #: [id number] TOBACCO SIZER: Renato Kitchen and Laura Varma STATUS: inpatient INDICATIONS: The patient is a 42 yr old female here for a colonoscopy due to iron deficiency anemia PROCEDURE PERFORMED: Colonoscopy, diagnostic MEDICATIONS: None and Per Anesthesia. PREP QUALITY: The [place] Bowel Prep Score was Right colon 2, Mid colon 2, and Left colon 2. Total = 6. PREP TYPE:GoLytely ESTIMATED BLOOD LOSS: None CONSENT: The patient understands the risks and benefits of the procedure and understands that these risks include, but are not limited to: sedation, allergic reaction, infection, perforation and/or bleeding. Alternative means of evaluation and treatment include, among others: physical exam, x-rays, and/or surgical intervention. The patient elects to proceed with this endoscopic procedure. medical equipment was checked for proper function. Hand hygiene and appropriate measures for infection prevention was taken. After the risks, benefits and alternatives of the procedure were thoroughly explained, Informed consent was verified, confirmed and timeout was successfully executed by the treatment team. A digital exam revealed external hemorrhoids The Pentax EC-[id number] endoscope was introduced through the anus and advanced to the cecum, which was identified by both the appendix and ileocecal valve. The instrument was then slowly withdrawn as the colon was fully examined. COLON FINDINGS: A small patch of colitis was found in the rectum. The mucosa was erythematous. Retroflexed views revealed internal hemorrhoids and Retroflexed views revealed medium internal hemorrhoids The scope was then completely withdrawn from the patient and the procedure terminated. PROCEDURE WITHDRAWAL TIME:6minutes ADVERSE EVENTS: There were no complications. IMPRESSIONS: 1. Small colitis was found in the rectum; The mucosa was erythematous 2. Retroflexed views revealed internal hemorrhoids 3. Retroflexed views revealed medium internal hemorrhoids 4. Revealed external hemorrhoids RECOMMENDATIONS: 1. Benefiber 2 tsp daily 2. Continue surveillance 3. Yearly hemoccult RECALL: Return 3 years Colonoscopy Bob Schilling MD eSigned: Bob Schilling MD 09/23/2017 2:44 PM cc:
--- NOTE | 2017-09-23 18:41 | RADRPT ---
EXAM DATE/TIME: 09/23/2017 15:50 [place] COMPARISON: No previous studies available for comparison. INDICATIONS : Chronic abdominal pain and constipation. Anemia. FLUORO TIME: 0 minutes IMAGE COUNT: 12 CONTRAST: Entero Vu 24% Barium Sulfate (24% w/v, 20% w/w) IMAGING TIME(S): 15 min, 30 min, 45 min, 1 hr, 1.5 hrs, 2.5 hrs MEDICAL HISTORY : Gastroesophageal reflux disease. Ulcers. Microcytic anemia, Hypertension, Endometriosis, Anxiety , Depression, Blood dyscrasias, IBS, TIA, Gallbladder disease, Seizures SURGICAL HISTORY : Gastric bypass. Cholecystectomy. Endoscopy, Colonoscopy, Colectomy, Breast deduction ENCOUNTER: Initial ACUITY: 1 week PAIN SCORE: 1/10 LOCATION: Bilateral abdomen FINDINGS: Preliminary film demonstrates gas throughout nondistended loops of small and large bowel. Evidence o f prior upper abdominal surgery.. Examination of the small bowel demonstrates normal mucosal pattern involving the jejunum and ileum. There is no evidence of mass or obstruction. No intraluminal filling defects are identified. Small bowel transit time is normal at 45 minutes. The terminal ileum has a normal configuration.. CONCLUSION: Unremarkable small bowel examination. Noah Martínez MD on September 23, 2017 at 18:38 Board Certified Radiologist. This report was verified electronically.
[2017-09-23] MEDS: PANTOPRAZOLE SODIUM 40 MG VIAL IV PUSH SCH (20:50)
[2017-09-23] MEDS: PHENOL 1.4% SOLN 180 ML BTL OROPHARYNG PRN (22:03)
[2017-09-24] VITALS: BP 112/67; PULSE 69; RESP 20; TEMP 96.6; O2SAT 99
[2017-09-24 08:53] VITALS: BP 99/53; PULSE 65; RESP 16; TEMP 96.9; O2SAT 98
[2017-09-24] MEDS: DOCUSATE SODIUM 50 MG/SENNA 8.6 MG TAB PO SCH (09:00)
[2017-09-24] MEDS: POLYETHYLENE GLYCOL 17 GM PKG PO SCH (09:00)
[2017-09-24] MEDS: SODIUM CHLORIDE 0.9% FLUSH 10 ML FLUSH IV FLUSH SCH (09:00)
[2017-09-24] MEDS ORDERED: VITA250C3 CHEW (09:55)
[2017-09-24] MEDS ORDERED: WHEA1POW13 PO (09:55)
[2017-09-24] MEDS ORDERED: FERR325T18 PO (09:55)
[2017-09-24] MEDS ORDERED: PANT40TA3 PO (09:55)
--- NOTE | 2017-09-24 09:56 | HHI.DCPOC ---
Discharge Care Plan Diagnosis: (1) Anemia (2) Iron deficiency anemia Goals to Promote Your Health * To prevent worsening of your condition and complications * To maintain your health at the optimal level Directions to Meet Your Goals Take your medications as prescribed Follow your dietary instruction Follow activity as directed Keep your appointments as scheduled Take your immunizations and boosters as scheduled If your symptoms worsen call your PCP, if no PCP go to Urgent Care Center or Emergency Room Smoking is Dangerous to Your Health. Avoid second hand smoke Call the 24-hour hour crisis hotline for domestic abuse at Ab Murillo Sep 24, 2017 09:56
[2017-09-24] MEDS: PHENOL 1.4% SOLN 180 ML BTL OROPHARYNG PRN (10:07)
--- NOTE | 2017-09-24 10:25 | HHI.PR ---
Subjective Remarks Follow up Microcytic anemia 09/22 2017-patient seen and examined, she was transfused 2 units PRBC; Denies any solid or liquid dysphagia. Denies any GI bleed 09/23/17-patient seen and examined, upsets that she had to take the prep for bowel due to continue ongoing issue with constipation. Plan for EGD +/- endoscopy per GI 09/24/17-patient seen and examined, EGD and colonoscopy performed followed by small bowel follow-through yesterday. Patient stable today and no acute complaint Objective Vitals Vital Signs Date Time Temp Pulse Resp B/P (MAP) Pulse Ox O2 Delivery O2 Flow Rate FiO2 09/24/17 08:53 96.9 65 16 99/53 (68) 98 09/24/17 00:00 96.6 69 20 112/67 (82) 99 09/23/17 20:00 97.3 70 20 103/65 (78) 100 09/23/17 15:50 96.9 67 15 104/72 (83) 100 09/23/17 15:10 98.6 70 16 102/58 (73) 99 09/23/17 14:48 98.6 77 14 100/53 (69) 97 09/23/17 13:14 98.5 80 16 104/45 (64) 99 09/23/17 12:00 97.7 77 15 108/63 (78) 98 I/O 09/23/17 09/23/17 09/23/17 09/24/17 09/24/17 09/24/17 06:59 14:59 22:59 06:59 14:59 22:59 Intake Total 110 ml Balance 110 ml Intake Oral 0 ml IV Total 110 ml # Voids 5 1 # Bowel Movements 1 Result Diagram: 09/23/1725 09/23/17 0625 Imaging Last Impressions Small Bowel X-Ray 09/23/17 0000 Signed Impressions: Service Date/Time: Saturday, September 23, 2017 15:50 - CONCLUSION: Unremarkable small bowel examination. Noah Martínez MD Abdomen/Pelvis CT 09/21/17 0000 Signed Impressions: Service Date/Time: Thursday, September 21, 2017 20:22 - CONCLUSION: 1. Constipation. No dilated loops of small bowel. 2. Prominence of the common bile duct without filling defect and with evidence of prior cholecystectomy, probably reservoir effect. Noah Martínez MD Objective Remarks GENERAL: NAD SKIN: Warm and dry. HEAD: Normocephalic. EYES: No scleral icterus. No injection or drainage. NECK: Supple, trachea midline. No JVD or lymphadenopathy. CARDIOVASCULAR: Regular rate and rhythm without murmurs, gallops, or rubs. RESPIRATORY: Breath sounds equal bilaterally. No accessory muscle use. GASTROINTESTINAL: Abdomen soft, non-tender, nondistended. MUSCULOSKELETAL: No cyanosis, or edema. BACK: Nontender without obvious deformity. No CVA tenderness. Procedures EGD and colonoscopy 09/23/17 A/P Problem List: (1) Microcytic anemia ICD Code: D50.9 - Iron deficiency anemia, unspecified (2) Iron deficiency anemia ICD Code: D50.9 - Iron deficiency anemia, unspecified Assessment and Plan 42 yrs old female with Microcytic Anemia Patient has history of Olayinka-en-Y surgery with iron deficiency, B12 deficiency Patient is not taking any medications for the last few months Status post transfusion 2 units packed red blood cells. H&H remained stable Appreciate input from gastroenterology and s/p EGD + Colonoscopy 09/23/17. 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
--- NOTE | 2017-09-24 10:27 | HHI.DS ---
Discharge Summary Admission Date Sep 20, 2017 at 21:42 Discharge Date: Sep 24, 2017 Admitting Diagnosis Anemia (1) Microcytic anemia ICD Code: D50.9 - Iron deficiency anemia, unspecified (2) Iron deficiency anemia ICD Code: D50.9 - Iron deficiency anemia, unspecified Procedures EGD and colonoscopy 09/23/17 Brief History - From Admission Written by Ab Murillo, acting as scribe for Dr. Jc on 09/21/17 at 08 :29. 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 Patient states that she is always been told when she was diagnosed with her bleeding disorder that if she would have any bleeding abnormalities such as delayed bleeding she should go to the hospital for evaluation. Patient states that 3 days ago she cut herself and it did not bleed as much as it should. Because of that reason she came to the hospital yesterday for evaluation. Patient does have coagulopathy in which she monitors symptoms. She has had significant sore throat, sore mouth with PICA because patient had workup done in emergency department and found to have hemoglobin of 6.0 with decreased MCV indicative of iron deficiency. Patient indicates that she has not been taking her B12 or iron for at least a few months. ER physician recommended patient be observed in the hospital. Patient status post 2 units packed red blood cell transfusion. Patient had strep studies performed which did not indicate any acute etiology of her mouth/throat pain. Patient denies any chest pain, shortness of breath, dyspnea, melena, hematochezia. Patient has had chronic abdominal pain with constipation. Patient indicates that she had heavier menses With more clots with her last cycle. CBC/BMP: 09/23/17 0625 09/23/17 0625 Significant Findings Laboratory Tests Test 09/21/17 10:35 09/21/17 10:45 09/23/17 06:25 Creatinine 0.47 MG/DL (0.50-1.00) 0.41 MG/DL (0.50-1.00) Alkaline Phosphatase 40 U/L (45-117) Aspartate Amino Transf (AST/SGOT) 9 U/L (15-37) Total Bilirubin 1.4 MG/DL (0.2-1.0) Chloride Level 109 MEQ/L (98-107) 108 MEQ/L (98-107) Hemoglobin 8.3 GM/DL (11.6-15.3) 7.9 GM/DL (11.6-15.3) Hematocrit 28.5 % (35.0-46.0) 27.1 % (35.0-46.0) Mean Corpuscular Volume 63.9 FL (80.0-100.0) 64.9 FL (80.0-100.0) Mean Corpuscular Hemoglobin 18.6 PG (27.0-34.0) 18.9 PG (27.0-34.0) Mean Corpuscular Hemoglobin Concent 29.1 % (32.0-36.0) 29.1 % (32.0-36.0) Red Cell Distribution Width 25.0 % (11.6-17.2) 26.0 % (11.6-17.2) Monocytes (%) (Auto) 10.4 % (0.0-8.0) Target Cells 1+ (NORMAL) 1+ (NORMAL) Ovalocytes 2+ (NORMAL) 2+ (NORMAL) Keratocytes 2+ (NORMAL) 1+ (NORMAL) Acanthocytes 1+ (NORMAL) Calcium Level 8.4 MG/DL (8.5-10.1) Potassium Level 3.1 MEQ/L (3.5-5.1) Imaging Last Impressions Small Bowel X-Ray 09/23/17 0000 Signed Impressions: Service Date/Time: Saturday, September 23, 2017 15:50 - CONCLUSION: Unremarkable small bowel examination. Noah Martínez MD Abdomen/Pelvis CT 09/21/17 0000 Signed Impressions: Service Date/Time: Thursday, September 21, 2017 20:22 - CONCLUSION: 1. Constipation. No dilated loops of small bowel. 2. Prominence of the common bile duct without filling defect and with evidence of prior cholecystectomy, probably reservoir effect. Noah Martínez MD PE at Discharge GENERAL: NAD SKIN: Warm and dry. HEAD: Normocephalic. EYES: No scleral icterus. No injection or drainage. NECK: Supple, trachea midline. No JVD or lymphadenopathy. CARDIOVASCULAR: Regular rate and rhythm without murmurs, gallops, or rubs. RESPIRATORY: Breath sounds equal bilaterally. No accessory muscle use. GASTROINTESTINAL: Abdomen soft, non-tender, nondistended. MUSCULOSKELETAL: No cyanosis, or edema. BACK: Nontender without obvious deformity. No CVA tenderness. Hospital Course Patient admitted secondary to microcytic anemia for which she was transfused 2 units packed red blood cell with consultation to gastroenterology and underwent an endoscopy + colonoscopy followed by small bowel follow-through. She was also transfused with Venofer 200 mg 2 days. DVT and GI prophylaxis were provided. Vital remained stable and patient conditions improved prior to discharge. Pt Condition on Discharge: Stable Discharge Disposition: Discharge Home Discharge Time: <= 30 minutes Discharge Instructions DIET: Follow Instructions for: High Fiber Diet Activities you can perform: Regular-No Restrictions Activities to Avoid: Driving for 24 hrs Follow up Referrals: Gastroenterology - 2 Weeks with Bob Schilling MD Oncology/Hematology - 2 Weeks PCP Follow-up - 1 Week New Medications: Ascorbic Acid (Vitamin C) 250 Mg Chew 250 MG CHEW BID for Nutritional Supplement, #60 TAB 0 Refills Ferrous Sulfate (Ferrous Sulfate) 325 Mg (65 Mg Iron) Tablet 325 MG PO BIDPC for Nutritional Supplement, #60 TAB 0 Refills Pantoprazole (Pantoprazole) 40 Mg Tab 40 MG PO DAILY for Reflux, #30 TAB 0 Refills Wheat Dextrin (Benefiber) 3 Gram/4 Gram Powder 25 GM PO DAILY for Constipation for 30 Days, CONTAINER Sammy Jc MD Sep 24, 2017 10:27
== END 2017-09-24 12:36 | disposition home or self-care (01) ==
LOC: PHED 19:55 → PHEDA 21:42 → PH3B 23:11
PROVIDERS: ADMIT Hospitalist; ATTEND Hospitalist
DX: D50.9 Iron deficiency anemia, unspecified (principal); S61.211A Laceration without foreign body of left index finger without damage to nail, initial encounter; K25.9 Gastric ulcer, unspecified as acute or chronic, without hemorrhage or perforation; K22.2 Esophageal obstruction; R13.10 Dysphagia, unspecified; K20.8 Other esophagitis; K52.9 Noninfective gastroenteritis and colitis, unspecified; K64.8 Other hemorrhoids; K64.4 Residual hemorrhoidal skin tags; N80.9 Endometriosis, unspecified; G89.29 Other chronic pain; R10.9 Unspecified abdominal pain; J02.9 Acute pharyngitis, unspecified; G40.909 Epilepsy, unspecified, not intractable, without status epilepticus; K21.9 Gastro-esophageal reflux disease without esophagitis; Z91.14 Patient's other noncompliance with medication regimen; Z98.84 Bariatric surgery status; Z86.73 Personal history of transient ischemic attack (TIA), and cerebral infarction without residual deficits; W26.0XXA Contact with knife, initial encounter
CPT/HCPCS: 00740; 36430; 43239; 45378; 74177; 74250; 80048; 80053; 82272; 82607; 82728; 82746; 82948; 83010; 83540; 83550; 83615; 85007; 85025; 85027; 85044; 85060; 85610; 85730; 86850; 86900; 86901; 86920; 87081; 87880; 88305; 88312; 92610; 96361; 96365; 96366; 96375; 96376; 99285; C9113; G0378; G8996; G8997; G8998; J1756; J7050; P9016; Q9963; Q9967

== ENCOUNTER 2018-01-01 23:16 | Emergency (ER) | payer MEDICAID, OTHER ==
[~2018-01-01] VITALS: Ht 160 cm; Wt 70.0 kg
[~2018-01-01 23:16] MED LIST: FERR325T18 PO; PANT40TA3 PO; VITA250C3 CHEW; WHEA1POW13 PO
[2018-01-01 23:30] VITALS: BP 114/55; PULSE 74; RESP 20; TEMP 97.9; O2SAT 100
--- NOTE | 2018-01-02 00:02 | PD ---
HPI Chief Complaint: General Weakness Time Seen by Provider: 23:51 Travel History International Travel<30 days: No Contact w/Intl Traveler<30days: No Traveled to known affect area: No History of Present Illness HPI 42-year-old female complains of generalized malaise and tiredness, shortness of breath and confusion. Patient states that symptoms started yesterday. Patient has history of anemia and coagulopathy in the past. Patient states that she had increase in general malaise and tiredness for the past 2 days. Patient denies any headache. Patient denies earache or sore throat. Patient denies any neck pain. She denies any coughing congestion. Patient denies abdominal pain. Patient denies any nausea vomiting diarrhea. 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) Psychiatric: Yes Reproductive: No Respiratory: No Migraines: Yes Seizures: Yes Sickle Cell Disease: No Thyroid Disease: No Ulcer: Yes ?: Unknown Past Surgical History Abdominal Surgery: Yes (rouin y nasrin,) Cardiac Surgery: No Ear Surgery: No Endocrine Surgery: Yes Eye Surgery: No Genitourinary Surgery: No Gynecologic Surgery: Yes () Oral Surgery: No Thoracic Surgery: No Social History Alcohol Use: No Tobacco Use: No Substance Use: No Allergies-Medications (Allergen,Severity, Reaction): Coded Allergies: Penicillins (Verified Allergy, Unknown, unknown, 01/01/18) Reported Meds & Prescriptions Reported Meds & Active Scripts Active Benefiber (Wheat Dextrin) 3 Gram/4 Gram Powder 25 Gm PO DAILY 30 Days Vitamin C (Ascorbic Acid) 250 Mg Chew 250 Mg CHEW BID Ferrous Sulfate 325 Mg (65 Mg Iron) Tablet 325 Mg PO BIDPC Pantoprazole (Pantoprazole Sodium) 40 Mg Tab 40 Mg PO DAILY Review of Systems General / Constitutional: No: Fever Eyes: No: Visual changes HENT: No: Headaches Cardiovascular: No: Chest Pain or Discomfort Respiratory: No: Shortness of Breath Gastrointestinal: No: Abdominal Pain Genitourinary: No: Dysuria Musculoskeletal: No: Pain Skin: No Rash Neurologic: No: Weakness Psychiatric: No: Depression Endocrine: No: Polydipsia Hematologic/Lymphatic: No: Easy Bruising Physical Exam Narrative GENERAL: Well-nourished, well-developed patient. SKIN: Focused skin assessment warm/dry. HEAD: Normocephalic. EYES: No scleral icterus. No injection or drainage. NECK: Supple, trachea midline. No JVD or lymphadenopathy. CARDIOVASCULAR: Regular rate and rhythm without murmurs, gallops, or rubs. RESPIRATORY: Breath sounds equal bilaterally. No accessory muscle use. GASTROINTESTINAL: Abdomen soft, non-tender, nondistended. MUSCULOSKELETAL: No cyanosis, or edema. BACK: Nontender without obvious deformity. No CVA tenderness. Neurologic exam normal. Data Data Last Documented VS Vital Signs Date Time Temp Pulse Resp B/P (MAP) Pulse Ox O2 Delivery O2 Flow Rate FiO2 01/01/18 23:30 97.9 74 20 114/55 (74) 100 Room Air Orders Orders Complete Blood Count With Diff (01/01/18 23:58) Comprehensive Metabolic Panel (01/01/18 23:58) Prothrombin Time / Inr (Pt) (01/01/18 23:58) Act Partial Throm Time (Ptt) (01/01/18 23:58) Urinalysis - C+S If Indicated (01/01/18 23:58) Chest, Single Ap (01/01/18 23:58) Iv Access Insert/Monitor (01/01/18 23:58) Ecg Monitoring (01/01/18 23:58) Oximetry (01/01/18 23:58) Electrocardiogram (01/02/18 ) Labs Laboratory Tests Test 01/02/18 00:15 White Blood Count 6.8 TH/MM3 Red Blood Count 4.58 MIL/MM3 Hemoglobin 13.0 GM/DL Hematocrit 38.6 % Mean Corpuscular Volume 84.2 FL Mean Corpuscular Hemoglobin 28.4 PG Mean Corpuscular Hemoglobin Concent 33.7 % Red Cell Distribution Width 13.8 % Platelet Count 279 TH/MM3 Mean Platelet Volume 7.9 FL Neutrophils (%) (Auto) 45.2 % Lymphocytes (%) (Auto) 43.4 % Monocytes (%) (Auto) 8.4 % Eosinophils (%) (Auto) 2.4 % Basophils (%) (Auto) 0.6 % Neutrophils # (Auto) 3.1 TH/MM3 Lymphocytes # (Auto) 2.9 TH/MM3 Monocytes # (Auto) 0.6 TH/MM3 Eosinophils # (Auto) 0.2 TH/MM3 Basophils # (Auto) 0.0 TH/MM3 CBC Comment AUTO DIFF Differential Comment AUTO DIFF CONFIRMED Platelet Estimate NORMAL Platelet Morphology Comment NORMAL Ovalocytes 1+ Acanthocytes 1+ Prothrombin Time 10.5 SEC Prothromb Time International Ratio 1.0 RATIO Activated Partial Thromboplast Time 26.0 SEC Blood Urea Nitrogen 15 MG/DL Creatinine 0.74 MG/DL Random Glucose 104 MG/DL Total Protein 7.1 GM/DL Albumin 4.0 GM/DL Calcium Level 9.3 MG/DL Alkaline Phosphatase 50 U/L Aspartate Amino Transf (AST/SGOT) 17 U/L Alanine Aminotransferase (ALT/SGPT) 20 U/L Total Bilirubin 0.2 MG/DL Sodium Level 139 MEQ/L Potassium Level 4.1 MEQ/L Chloride Level 106 MEQ/L Carbon Dioxide Level 25.1 MEQ/L Anion Gap 8 MEQ/L Estimat Glomerular Filtration Rate 85 ML/MIN MDM Medical Decision Making Medical Screen Exam Complete: Yes Emergency Medical Condition: Yes Interpretation(s) 1:10 AM. Chest x-ray shows no acute consolidation. CBC within normal limits. CMP within normal limits. Differential Diagnosis Differential diagnosis including viral syndrome, anemia, electrolyte imbalance, dehydration. Narrative Course 42-year-old female with generalized malaise and weakness and shortness of breath. Diagnosis Primary Impression: Viral syndrome Patient Instructions: General Instructions Additional Instructions: Follow-up with personal physician. Return if worse. Med/Other Pt SpecificInfo: No Change to Meds Disposition: 01 DISCHARGE HOME Condition: Stable Tez Browning MD Jan 02, 2018 00:02
[2018-01-02 00:31] LABS: AUTOMATED NEUTROPHIL # 3.1 TH/MM3 (1.8-7.7); BASOPHIL % 0.6 % (0.0-2.0); EOSINOPHIL # 0.2 TH/MM3 (0-0.4); EOSINOPHIL % 2.4 % (0.0-4.0); HEMATOCRIT 38.6 % (35.0-46.0); LYMPH % 43.4 % (9.0-44.0); LYMPHOCYTE # 2.9 TH/MM3 (1.0-4.8); MEAN CELL VOLUME 84.2 FL (80.0-100.0); MEAN CORPUSCULAR HEMOGLOBIN 28.4 PG (27.0-34.0); MEAN CORPUSCULAR HGB CONC 33.7 % (32.0-36.0); MEAN PLATELET VOLUME 7.9 FL (7.0-11.0); MONO % 8.4 % (0.0-8.0); MONOCYTE # 0.6 TH/MM3 (0-0.9); NEUT % 45.2 % (16.0-70.0); PLATELET COUNT 279 TH/MM3 (150-450); RED BLOOD COUNT 4.58 MIL/MM3 (4.00-5.30); RED CELL DISTRIBUTION WIDTH 13.8 % (11.6-17.2); WHITE BLOOD COUNT 6.8 TH/MM3 (4.0-11.0)
[2018-01-02 00:42] LABS: PROTHROMBIN TIME - PATIENT 10.5 SEC (9.8-11.6)
[2018-01-02 00:46] LABS: ALT (GPT) 20 U/L (10-53)
[2018-01-02 00:48] LABS: ALKALINE PHOSPHATASE 50 U/L (45-117); TOTAL BILIRUBIN ADULT 0.2 MG/DL (0.2-1.0); TOTAL PROTEIN 7.1 GM/DL (6.4-8.2)
[2018-01-02 00:49] LABS: AST (GOT) 17 U/L (15-37); BICARBONATE 25.1 MEQ/L (21.0-32.0); BLOOD UREA NITROGEN 15 MG/DL (7-18); CALCIUM 9.3 MG/DL (8.5-10.1); CHLORIDE 106 MEQ/L (98-107); CREATININE 0.74 MG/DL (0.50-1.00); GLOMERULAR FILTRATION RATE 85 ML/MIN (>89); GLUCOSE,RANDOM 104 MG/DL (74-106); SODIUM (NA) 139 MEQ/L (136-145)
[2018-01-02 00:58] LABS: ACANTHOCYTES 1+ (NORMAL); OVALOCYTES 1+ (NORMAL)
--- NOTE | 2018-01-02 01:06 | RADRPT ---
EXAM DATE/TIME: 01/02/2018 00:32 [facility] COMPARISON: No previous studies available for comparison. INDICATIONS : Short of breath. MEDICAL HISTORY : None. SURGICAL HISTORY : None. ENCOUNTER: Initial ACUITY: 1 day PAIN SCORE: 0/10 LOCATION: Bilateral chest FINDINGS: Portable AP view of the chest demonstrates a normal-sized cardiac silhouette. No effusion, consolidat ion, or pneumothorax is visualized. The bones and soft tissues demonstrate no acute abnormality. EKG lines overlie the patient. CONCLUSION: No acute cardiopulmonary abnormality is identified. Anup aSunders MD on January 02, 2018 at 1:03 Board Certified Radiologist. This report was verified electronically.
--- NOTE | 2018-01-02 13:36 | EKG ---
Date Performed: 01/02/2018 Time Performed: 00:17:27 PTAGE: 42 years EKG: Sinus rhythm NORMAL ECG NO PREVIOUS TRACING DOCTOR: Panda Escamilla Interpretating Date/Time 01/02/2018 13:34:11
== END 2018-01-02 01:41 | disposition home or self-care (01) ==
LOC: NEPE 23:16
DX: B34.9 Viral infection, unspecified (principal)
CPT/HCPCS: 71045; 80053; 85025; 85610; 85730; 93005